=== PATIENT | male | born 1985 | race African-American/Black ===

== ENCOUNTER 2016-10-01 11:35 | Emergency (ER) | payer SELFPAY ==
[2014-03-21 09:18] VITALS: BP 140/86
[2016-10-01] MEDS ORDERED: HYDR-971 PO (12:28)
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
[2016-10-01] MEDS ORDERED: NEOMY/BACITR/POLYMYXIN OINT PACKET. TP ONE (12:30)
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
== END 2016-10-01 12:49 | disposition home or self-care (01) ==
LOC: ER 11:35
DX: S62.102A Fracture of unspecified carpal bone, left wrist, initial encounter for closed fracture (principal); Y04.0XXA Assault by unarmed brawl or fight, initial encounter; Y93.89 Activity, other specified; Y92.89 Other specified places as the place of occurrence of the external cause; Y99.8 Other external cause status
CPT/HCPCS: 29125; 73110; 99284-25

== ENCOUNTER 2016-10-14 14:42 | Emergency (ER) | payer SELFPAY ==
[~2016-10-14] VITALS: Ht 167.6 cm; Wt 95.3 kg
[~2016-10-14 14:42] MED LIST: HYDR-971 PO
[2016-10-14 15:07] VITALS: BP 161/96
[2016-10-14] MEDS ORDERED: METH4TAB2 PO (15:47)
[2016-10-14] MEDS ORDERED: TRAM-48 PO (15:47)
--- NOTE | 2016-10-14 15:47 | PHYS DOC ---
Past Medical History Past Medical History: No Pertinent History Past Surgical History: No Surgical History Alcohol Use: Occasionally Drug Use: None Adult General Chief Complaint Chief Complaint: WRIST PAIN HPI HPI Patient is a 30 year old male who presents with ongoing mild left lateral wrist pain and swelling that began on October 01, 2016 after he fell. Patient was seen in the ED and was given a wet read x-ray with wrist fx. He presents today stating he went to the orthopedic doctor on October 05, 2016, he states he had no medical insurance so they could not see him, he states he set another appointment for today. He states he went back and they could not see him again because he had no medical insurance so he came back to the ED. Patient denies any new injuries. Review of Systems Review of Systems Constitutional: Denies fever or chills [] Musculoskeletal: left lateral wrist pain and swelling Integument: Denies rash or skin lesions [] Neurologic: Denies headache, focal weakness or sensory changes [] Allergies Allergies Allergies Coded Allergies Type Severity Reaction Last Updated Verified No Known Drug Allergies 03/21/14 No Physical Exam Physical Exam Constitutional: Well developed, well nourished, no acute distress, non-toxic appearance. [] Skin: Warm, dry, no erythema, no rash. [] Back: No tenderness, no CVA tenderness. [] Extremities: Left wrist in a dirty splint With mild soft tissue swelling noted on the hand and fingers. Cap refill less than 2 seconds the left fingers. Adequate radial medial and ulnar sensation to the left hand. Range of motion limited due to splint Neurologic: Alert and oriented X 3, normal motor function, normal sensory function, no focal deficits noted. [] Psychologic: Affect normal, judgement normal, mood normal. [] Current Patient Data Vital Signs Vital Signs Date Time Temp Pulse Resp B/P (MAP) Pulse Ox O2 Delivery O2 Flow Rate FiO2 10/14/16 15:07 98.3 83 18 100 Room Air 98.3 EKG EKG [] Radiology/Procedures Radiology/Procedures [] Course & Med Decision Making Course & Med Decision Making Pertinent Labs and Imaging studies reviewed. (See chart for details) Patient is in the ED with ongoing left wrist pain since October 01, 2016 after falling. He attempted to go to see the orthopedic doctor with no success because he has no medical insurance and the will not see him. His wet red xray was diagnosed as positive for fx Left wrist x-rays interpreted by radiologist on October 01, 2016 was negative for any acute findings, patient was given the negative read on his xray. I recommended icing and elevating the extremity. Discharge him with Medrol Dosepak and Ultram. Switched his splint Velcro splint applied by the it technical support specialist, neurovascular exam done by me is normal. I did give him an orthopedic doctor for follow-up, recommended he can consider paying them betts. Dragon Disclaimer Dragon Disclaimer This electronic medical record was generated, in whole or in part, using a voice recognition dictation system. Departure Departure Impression: Primary Impression: Left wrist sprain Additional Impression: Fall from standing Disposition: HOME, SELF-CARE Condition: STABLE Referrals: NO PCP (PCP) LATA JAMIL MD follow up with the orthopedic doctor in one week Patient Instructions: Fall Prevention and Home Safety, Wrist Sprain with [facility] Additional Instructions: You were seen for left wrist sprain. Wear the Velcro splint as tolerated. Try to ice and elevate the affected extremity. Follow-up with orthopedic doctor, considering you have no medical insurance try and see if they'll accept betts payment and work on a payment plan with them. Scripts Methylprednisolone (MEDROL) 4 Mg Tab.ds.pk 1 PKG PO UD, #1 PKG Prov: ELIGIO DAVIDSON APRN 10/14/16 Tramadol Hcl (ULTRAM) 50 Mg Tablet 1 TAB PO Q6HRS, #30 TAB Prov: ELIGIO DAVIDSON APRN 10/14/16 Problem Qualifiers Primary Impression: Left wrist sprain Encounter type: subsequent encounter Qualified Codes: S63.502D - Unspecified sprain of left wrist, subsequent encounter Additional Impression: Fall from standing Encounter type: subsequent encounter Qualified Codes: W19.XXXD - Unspecified fall, subsequent encounter RAFFYSELVINGeriELIGIO GUEST RELATIONS EXECUTIVE Oct 14, 2016 15:47
== END 2016-10-14 15:50 | disposition home or self-care (01) ==
LOC: ER 14:42
DX: S63.502A Unspecified sprain of left wrist, initial encounter (principal); X58.XXXA Exposure to other specified factors, initial encounter; Y93.89 Activity, other specified; Y92.89 Other specified places as the place of occurrence of the external cause; Y99.8 Other external cause status
CPT/HCPCS: 29125; 99283-25